=== PATIENT | male | born 1990 | race African-American/Black ===

== ENCOUNTER 2016-10-01 12:24 | Inpatient (IN) | payer MEDICAID ==
[~2016-10-01] VITALS: Ht 182.9 cm; Wt 73.2 kg
--- NOTE | 2016-10-01 12:53 | NUR ---
PT AMBULATORY TO ROOM, AWAITING MSE
[2016-10-01 14:00] LABS: BASOPHIL % 1.4 % (0-2); PLATELET COUNT 139 x10^3mcL (130-400)
[2016-10-01 14:08] LABS: CALCIUM 9.4 mg/dL (8.5-10.1); CARBON DIOXIDE 30.4 mmol/L (21-32); CHLORIDE SERUM 97 mmol/L (98-107); GFR1 > 60 mL/min; GLUCOSE SERUM 101 mg/dL (74-106); POTASSIUM SERUM 3.7 mmol/L (3.5-5.1); SODIUM SERUM 136 mmol/L (136-145)
[2016-10-01 14:09] LABS: RED CELL DISTRIBUTION WIDTH 14.9 % (11.5-14.5)
--- NOTE | 2016-10-01 14:09 | NUR ---
PT MEDICATED WITH ZOFRAN 4MG SLOW IVP, PROTONIX 40MG SLOW IVP, AND ATIVAN 2MG SLOW IVP PER MD ORDERS. PT EDUCATED ON MEDICATION PRIOR TO ADMINISTRATION AND VERBALIZED UNDERSTANDING. PT REMAINS ON SPECIAL LIBRARIAN WITH CALL LIGHT IN REACH.
[2016-10-01 14:11] LABS: ALBUMIN 4.1 g/dL (3.4-5.0); ALKALINE PHOSPHATASE 123 U/L (46-116); ALT/SGPT 137 U/L (16-63); AST/SGOT 372 U/L (15-37); TOTAL PROTEIN, SERUM 7.5 g/dL (6.4-8.2)
--- NOTE | 2016-10-01 14:32 | NUR ---
PT HAS BANANA BAG INFUSING AT 250ML/HR PER MD ORDERS. PT EDUCATED ON MEDICATION PRIOR TO ADMINISTRATION AND VERBALIZED UNDERSTANDING. PT REMAINS ON DIE OUT WORKER WITH CALL LIGHT IN REACH.
--- NOTE | 2016-10-01 15:38 | NUR ---
PT RESTING ON GURNEY IN A POSITION OF COMFORT. PT STS HE IS FEELING BETTER SINCE BEING MEDICATED. PT REMAINS ON DINING ROOM HOST/HOSTESS WITH CALL LIGHT IN REACH AND MOTHER AT BEDSIDE.
--- NOTE | 2016-10-01 16:02 | NUR ---
REPORT GIVEN TO JORDYN GUALLPA TO ASSUME CARE OF PT.
[2016-10-01 16:42] VITALS: BP 152/85
--- NOTE | 2016-10-01 16:43 | NUR ---
RECEIVED PATIENT FROM ED VIA GUERNEY, PATIENT IN NO ACUTE DISTRESS, NO C/O PAIN AT THIS TIME, ALERT AND ORIENTED MOTHER AT BEDSIDE, TELE # 15 SR, ORIENTED PATIENT TO ROOM AND SURROUNDINGS, BED IN LOW POSITION, BED RAILS UP X 2, CALL LIGHT WITHIN REACH, WILL CONTINUE TO MONITOR
[2016-10-01 17:04] LABS: MAGNESIUM 1.5 mg/dL (1.8-2.4); PHOSPHOROUS 4.6 mg/dL (2.5-4.9)
[2016-10-01 17:09] LABS: CHOLESTEROL/HDL RATIO 1.7
[2016-10-01 17:10] LABS: T3 TOTAL 1.29 ng/mL
[2016-10-01 17:12] LABS: FREE T4 1.11 ng/dL (0.76-1.46); FREE THYROXINE INDEX 3.3 ug/dL (1.4-4.5); T4(THYROXINE) 9.3 ug/dL (4.7-13.3)
[2016-10-01 18:03] VITALS: BP 152/85
--- NOTE | 2016-10-01 19:10 | NUR ---
PATIENT RECEIVED AWAKE, ALERT, AND ORIENTED X 4. PATIENT DENIES NAUSEA AND VOMITING AT THIS TIME. PATIENT DENIES ABD PAIN/DISCOMFORT AT THIS TIME. IV SITE TO LEFT AC, PATENT AND INTACT. IV FLUID INFUSING PER DOCTOR'S ORDER. BED IN LOWEST POSITION. CALL LIGHT WITHIN REACH. WILL CONTINUE TO MONITOR.
[2016-10-01 21:54] VITALS: BP 147/67
--- NOTE | 2016-10-02 05:29 | NUR ---
PATIENT RESTED THROUGHOUT THE NIGHT. NO DISTRESS NOTED. NO C/O ABD PAIN. SAFETY AND COMFORT MEASURES MAINTAINED. SEIZURE PRECAUTION MAINTAINED. BED IN LOWEST POSITION. CALL LIGHT WITHIN REACH. WILL CONTINUE TO MONITOR AND ENDORSE TO NEXT SHIFT NURSE.
[2016-10-02 06:10] LABS: BASOPHIL % 0.6 % (0-2)
[2016-10-02 06:16] LABS: PLATELET COUNT 120 x10^3mcL (130-400)
[2016-10-02 06:20] VITALS: BP 127/76
[2016-10-02 06:22] LABS: CALCIUM 8.8 mg/dL (8.5-10.1); CARBON DIOXIDE 28.3 mmol/L (21-32); CHLORIDE SERUM 102 mmol/L (98-107); GFR1 > 60 mL/min; GLUCOSE SERUM 75 mg/dL (74-106); MAGNESIUM 2.6 mg/dL (1.8-2.4); PHOSPHOROUS 4.6 mg/dL (2.5-4.9); POTASSIUM SERUM 3.9 mmol/L (3.5-5.1); SODIUM SERUM 141 mmol/L (136-145)
--- NOTE | 2016-10-02 07:15 | NUR ---
RECEIVED PATIENT RESTING IN BED, IN NO ACUTE DISTRESS, NO C/O PAIN AT THIS TIME, ALERT AND ORIENTED, TELE # 15 SR, ETOH PROTOCOL IN PLACE, PULSES PALPABLE TO ALL EXTREMITIES, LUNG SOUNDS CLEAR ON RA, BOWEL SOUNDS ACTIVE, IV ACCESS TO LAC WNL, BED IN LOW POSITION, BED RAILS UP X 2, CALL LIGHT WITHIN REACH, WILL CONTINUE TO MONITOR
--- NOTE | 2016-10-02 10:05 | NUR ---
PATIENT TRANSPORTED DOWN FOR EGD
[2016-10-02 10:14] VITALS: BP 144/95
--- NOTE | 2016-10-02 11:30 | NUR ---
RECEIVED PATIENT FROM EGD PROCEDURE, REPORT GIVEN, FAMILY AT BEDSIDE, WILL CONTINUE TO MONITOR
--- NOTE | 2016-10-02 15:47 | NUR ---
PATIENT DOWN FOR EGD
--- NOTE | 2016-10-02 16:40 | NUR ---
Initial Nutrition Assessment Dx: GI Bleed PMHx: Childhood asthma, GERD, ETOH abuse PSHx: None Labs: BG 75, BUN 6 L, Magnesium 2.6 H, WBC 3.9 L; (10/01) AST 372 H, ALT 137 H, Cholesterol 207 H Meds: Ativan, Colace, folic acid, protonix, NS IV, theragran-M, vitamin B1, zofran Current Diet Order: (10/02) Clear Liquid (Diet to be advanced for Dinner 10/02) Ht: 72", 6'. Wt: 161 lb, 73 kg. BMI: 21.9 kg/m2 (Normal) IBW: 178 lb, 81 kg. %IBW: 90%. UBW: 200 lb, 91 kg. Age: 26 Y/O M Food Allergies: None Skin: Intact. Alexander 22. Edema: None GI: Active bowel sounds. Last BM 10/01. Nursing Trigger: Nausea, Vomiting, Diarrhea >3 days; Unintentional weight loss >10 lb in past month; Admitted with potential risk diagnosis; Poor PO intakes >3 days; Unable to ingest diet for age. Pt found with hematemesis possibly secondary to gastritis vs peptic ulcers vs varices vs Belinda Rodriguez syndrome per doctor's notes. Per H&P documentation, pt has been drinking 1 pint of Vodka daily for the past 6 months, vomiting for last 3-4 months, always had a heavy drinking history along with partying, things got out of hand when grandmother back in 2013. Per [facility]uddle reports, EGD with Dr. Junior, Dr. Bonilla consult. Per doctor's progress note 10/02, EGD showed hiatal hernia, esophagitis, pending psych eval. Pt was seen resting in bed, very frustrated due to being extremely hungry. Pt stated that he has not been eating for the past 2 days and wants some bread/toast. RD explained to pt diet progression, however, pt still frustrated and stated that GI doctor stated there is nothing wrong with pt, able to start a diet. RD attempted to explain to pt diet progression again, however, pt annoyed at this time, stated he wants to eat. RD unable to complete full interview due to pt's frustration. Informed doctor regarding pt's concerns. Noted no nausea/vomiting per pt. Recent Weight Loss: -39 lb. % Weight Change: 19.5% weight loss within 6 months due to low appetite at home per pt Estimated Nutritional Needs Based CBW 161 lb, 73 kg Energy: 7151-2566 kcal/day (25-30 kcal/kg for Maintenance) Protein: 73 gm/day (1 gm/kg for Maintenance) Fluids: 2190 ml/day (30 ml/kg for Maintenance) or per doctor Nutrition Diagnosis Unintentional weight loss related to low appetite secondary to ETOH abuse as evidenced by 19.5% weight loss within 6 months Intervention 1. Continue Clear Liquid diet per doctor. 2. Consider advance as tolerated to Low Fiber/Residue diet if/when medically appropriate. Monitor/Evaluate Goal: PO intakes to meet at least 50% of estimated needs with tolerance Monitor: PO intakes, tolerance to diet, labs, skin integrity, GI function, weights F/U in 3-5 days as MODERATE risk (10/05-10/07)
--- NOTE | 2016-10-02 16:40 | NUR ---
1. Continue Clear Liquid diet per doctor. 2. Consider advance as tolerated to Low Fiber/Residue diet if/when medically appropriate.
[2016-10-02 18:15] VITALS: BP 140/90
--- NOTE | 2016-10-02 19:20 | NUR ---
REC'D PT RESTING IN BED. PT IS AAOX4. NO DISTRESS NOTED. ON ETOH PROTOCOL. DENIES PAIN OR DISCOMFORT. LUNG SOUNDS CLEAR. NO SOB NOTED. NO TREMORS NOTED. IVF INFUSING TO LAC PER DOCTOR'S ORDER. INTACT AND PATENT. SAFETY AND COMFORT MEASURES IN PLACE. BED IN LOWEST POSITION. CALL LIGHT WITHIN REACH. WILL CONTINUE TO MONITOR.
[2016-10-02 21:55] VITALS: BP 141/94
[2016-10-02 22:03] LABS: microscopic required? NO
[2016-10-02 22:09] LABS: UA SPECIFIC GRAVITY 1.015 (1.005-1.035); urine erythrocyte NEGATIVE (NEGATIVE)
[2016-10-02 22:19] LABS: AMPHETAMINE QUAL UR NONE DETECTED (NEG <=1000)
--- NOTE | 2016-10-03 05:20 | NUR ---
PT SLEPT WELL. NO SIGNIFICANT CHANGES. NO DISTRESS NOTED. IVF INFUSING WELL. SEIZURE PRECAUTION IN PLACE. CALL LIGHT WITHIN REACH. WILL CONTINUE TO MONITOR.
[2016-10-03 05:42] VITALS: BP 122/78
[2016-10-03 06:21] LABS: BASOPHIL % 0.4 % (0-2); PLATELET COUNT 137 x10^3mcL (130-400); RED CELL DISTRIBUTION WIDTH 14.4 % (11.5-14.5)
[2016-10-03 06:31] LABS: CALCIUM 9.1 mg/dL (8.5-10.1); CARBON DIOXIDE 28.7 mmol/L (21-32); CHLORIDE SERUM 100 mmol/L (98-107); GFR1 > 60 mL/min; GLUCOSE SERUM 85 mg/dL (74-106); MAGNESIUM 2.1 mg/dL (1.8-2.4); PHOSPHOROUS 4.6 mg/dL (2.5-4.9); POTASSIUM SERUM 3.5 mmol/L (3.5-5.1); SODIUM SERUM 139 mmol/L (136-145)
--- NOTE | 2016-10-03 07:49 | NUR ---
A/O X4. CLEAR SPEECH. FOLLOW COMMANDS. ON SZ PRECAUTION. MEDSURG HR 68. RADIAL AND PEDAL PULSES PALAPBLE. NO EDEMA OR SWELLING NOTED. <3 SECS CAP REFILL. SCDS IN PLACED. ON RA SAT 99%. BREATHING EVEN AND UNLABORED. CLEAR LUNG SOUNDS. NO NVD. VOIDING ADEQUATELTY. AMBULATORY WITH STEADY GAIT. NO SKIN TEAR OR OPEN WOUND. DENIES PAIN AT THIS TIME. IV SITE INTACT ON LAC. NS INFUSING WELL AT LAC. WILL CONTINUE TO MONITOR. CALL LIGHT WITHIN REACH.
[2016-10-03 10:29] VITALS: BP 131/80
--- NOTE | 2016-10-03 10:29 | NUR ---
TOOK MEDS WITHOUT DIFFICULTY. NO DISTRESS NOTED. WILL CONTINUE TO MONITOR.
--- NOTE | 2016-10-03 11:10 | NUR ---
SLEEPING AT THIS TIME. NO DISTRESS NOTED. WILL CONTINUE TO MONITOR.
[2016-10-03] MEDS ORDERED: ATI1 PO (12:12)
[2016-10-03] MEDS ORDERED: GOOD SENSE OMEP20 MG PO (12:13)
[2016-10-03] MEDS ORDERED: THI100 PO (12:14)
[2016-10-03] MEDS ORDERED: FOL1 PO (12:14)
[2016-10-03 12:28] VITALS: BP 131/80
--- NOTE | 2016-10-03 12:31 | NUR ---
SLEEPING AT THIS TIME. NO DISTRESS NOTED.
--- NOTE | 2016-10-03 13:58 | NUR ---
DC INSTRUCTION AND SCRIPT GIVEN. VERBALIZE UNDERSTANDING. IV YANETH INTACT AND DC'D. NO TELEBOX. MOTHER AT BEDSIDE. DR PAREDES AT BEDSIDE.
== END 2016-10-03 14:05 | disposition home or self-care (01) | DRG 243 ==
LOC: ED 12:24 → DU 15:41 → MU 10-02 12:20
PROVIDERS: Specialist; ADMIT Family Medicine
PROC: 0DB68ZX Excision of Stomach, Via Natural or Artificial Opening Endoscopic, Diagnostic (ICD-10-PCS; principal; 2016-10-03)
DX: K22.11 Ulcer of esophagus with bleeding (principal); E83.42 Hypomagnesemia; K44.9 Diaphragmatic hernia without obstruction or gangrene; F10.10 Alcohol abuse, uncomplicated; K21.9 Gastro-esophageal reflux disease without esophagitis; F43.23 Adjustment disorder with mixed anxiety and depressed mood; E78.00 Pure hypercholesterolemia, unspecified; Z91.19 Patient's noncompliance with other medical treatment and regimen
CPT/HCPCS: 43235; 83880; 84439; C9113; G0480; J1200; J1610; J2060; J2250; J2310; J2405; J3010; J3360; J3475; J3490; J7030; Q0092

== ENCOUNTER 2017-02-20 01:48 | Inpatient (IN) | payer MEDICAID ==
[~2017-02-20] VITALS: Ht 182.9 cm; Wt 74.4 kg
[2017-02-20] VITALS (7 sets, daily range): BP systolic 131–151; BP diastolic 86–95
[~2017-02-20 01:48] MED LIST: ATI1 PO; FOL1 PO; GOOD SENSE OMEP20 MG PO; THI100 PO
[2017-02-20 02:45] LABS: BASOPHIL % 0.5 % (0-2); PLATELET COUNT 164 x10^3mcL (130-400)
[2017-02-20 02:47] LABS: CALCIUM 8.6 mg/dL (8.5-10.1); CHLORIDE SERUM 102 mmol/L (98-107); GFR1 > 60 mL/min; GLUCOSE SERUM 92 mg/dL (74-106); POTASSIUM SERUM 4.1 mmol/L (3.5-5.1); SODIUM SERUM 139 mmol/L (136-145)
[2017-02-20 02:51] LABS: RED CELL DISTRIBUTION WIDTH 15.6 % (11.5-14.5)
[2017-02-20 02:53] LABS: ALBUMIN 3.4 g/dL (3.4-5.0); ALKALINE PHOSPHATASE 79 U/L (46-116); ALT/SGPT 87 U/L (16-63); AST/SGOT 122 U/L (15-37); BILIRUBIN TOTAL 0.68 mg/dL (0.20-1.00); CHOLESTEROL 152 mg/dL (<200); PHOSPHOROUS 3.8 mg/dL (2.5-4.9); TOTAL PROTEIN, SERUM 6.3 g/dL (6.4-8.2); URIC ACID 5.4 mg/dL (3.5-7.2)
[2017-02-20 02:54] LABS: HDL CHOLESTEROL 74 mg/dL (40-60)
[2017-02-20 12:39] LABS: microscopic required? NO
[2017-02-20 12:57] LABS: urine erythrocyte NEGATIVE (NEGATIVE)
[2017-02-20 13:05] LABS: AMPHETAMINE QUAL UR NONE DETECTED (NEG <=1000)
[2017-02-21 06:12] LABS: BASOPHIL % 0.7 % (0-2); PLATELET COUNT 183 x10^3mcL (130-400)
[2017-02-21 06:21] LABS: RED CELL DISTRIBUTION WIDTH 15.9 % (11.5-14.5)
[2017-02-21 06:39] LABS: CALCIUM 9.3 mg/dL (8.5-10.1); CARBON DIOXIDE 29.5 mmol/L (21-32); CHLORIDE SERUM 102 mmol/L (98-107); CREATININE SERUM 0.9 mg/dL (0.7-1.3); GFR1 > 60 mL/min; GLUCOSE SERUM 87 mg/dL (74-106); MAGNESIUM 2.2 mg/dL (1.8-2.4); PHOSPHOROUS 4.9 mg/dL (2.5-4.9); POTASSIUM SERUM 3.9 mmol/L (3.5-5.1); SODIUM SERUM 140 mmol/L (136-145)
[2017-02-21 06:45] VITALS: BP 140/86
[2017-02-21 06:47] LABS: T3 TOTAL 1.13 ng/mL
[2017-02-21 07:01] LABS: FREE T4 1.07 ng/dL (0.76-1.46); T4(THYROXINE) 8.6 ug/dL (4.7-13.3)
[2017-02-21 09:42] VITALS: BP 133/79
[2017-02-21 13:32] VITALS: BP 137/94
[2017-02-21] MEDS ORDERED: CHLORDIAZEPOXID25 M2 PO (15:27)
[2017-02-21] MEDS ORDERED: GOOD SENSE OMEP20 MG PO (15:28)
[2017-02-21 16:18] VITALS: BP 137/94
== END 2017-02-21 17:12 | disposition home or self-care (01) | DRG 775 ==
LOC: ED 01:48 → DU 03:31
PROVIDERS: Emergency Medicine; ADMIT Family Medicine
DX: F10.239 Alcohol dependence with withdrawal, unspecified (principal); G92 Toxic encephalopathy; E83.42 Hypomagnesemia; K21.9 Gastro-esophageal reflux disease without esophagitis; D64.9 Anemia, unspecified; R74.0 Nonspecific elevation of levels of transaminase and lactic acid dehydrogenase [LDH]; I10 Essential (primary) hypertension; Z68.21 Body mass index [BMI] 21.0-21.9, adult; T51.0X1A Toxic effect of ethanol, accidental (unintentional), initial encounter
CPT/HCPCS: 83880; 84439; G0480; J1630; J2060; J3475; J7030; Q0092